=== PATIENT | male | born 1995 | race Caucasian/White ===

== ENCOUNTER 2017-09-11 17:32 | Emergency (ER) | payer BC, OTHER ==
[~2017-09-11] VITALS: Ht 182.9 cm; Wt 77.3 kg
[~2017-09-11 17:32] MED LIST: AZIT200S4 PO; HYDR473S47 PO; PRED30TA2 PO
[2017-09-11 17:34] VITALS: BP 149/91
[2017-09-11] MEDS ORDERED: DIPH,PERTUSS(ACELL),TET VAC/PF 0.5 ML IM-VACC ONE ×2 (18:30→18:44)
== END 2017-09-11 19:23 | disposition home or self-care (01) ==
LOC: ED 19:00
DX: S62.623A Displaced fracture of middle phalanx of left middle finger, initial encounter for closed fracture (principal); W22.8XXA Striking against or struck by other objects, initial encounter; Y93.89 Activity, other specified; Y92.098 Other place in other non-institutional residence as the place of occurrence of the external cause; Y99.8 Other external cause status; Z88.0 Allergy status to penicillin
CPT/HCPCS: 29130; 90471; 90715